=== PATIENT | male | born 1945 | race Caucasian/White ===

== ENCOUNTER → 2021-03-02 09:38 | Outpatient (CLI) | payer MEDICARE, OTHER, SELFPAY ==
--- NOTE | ~2021-03-02 | XR_ITS ---
EXAMINATION: XR hip RT min 2V DATE: 03/02/2021 09:54 INDICATION: Right hip pain. TECHNIQUE: 2 views of right hip were obtained. COMPARISON: None. FINDINGS: Bone alignment is normal. No fracture. There is mild right hip osteoarthritis. IMPRESSION: 1. Mild right hip osteoarthritis. Reviewed, dictated and finalized at location A. [facility] CLERK
== END ==
PROVIDERS: PCP Family Medicine; Visit Provider Family Medicine
DX: M16.11 Unilateral primary osteoarthritis, right hip (principal)
CPT/HCPCS: 73502

== ENCOUNTER 2023-05-30 08:26 | Emergency (ER) | payer MEDICARE, SELFPAY ==
[2023-05-30] VITALS (16 sets, daily range): BP systolic 101–154; BP diastolic 61–85; PULSE 72; RESP 16–18; TEMP 36.4; O2SAT 94–100
--- NOTE | ~2023-05-30 | CT_ITS ---
EXAMINATION: CT abdomen pelvis w con INDICATION: Right lower quadrant abdominal pain TECHNIQUE: Computed tomographic images of the abdomen and pelvis were obtained after the administrati on of 100 cc of Omnipaque 350 intravenous contrast. The dose-length product (DLP) was 255.41 mGy-cm. Automated exposure control and iterative reconstruction technique were employed. COMPARISON: None available FINDINGS: Minimal dependent atelectasis is present in the lung bases. The heart size is normal. Calci fied coronary artery atherosclerosis is noted. There is mild bilateral gynecomastia. Cysts of the raphael er measure up to 12 mm in the right hepatic lobe. The spleen, pancreas, and adrenal glands are normal . Stones are present in the nondistended gallbladder. There is a 3 mm nonobstructing stone of the lef t kidney. There is a 4 mm stone at the right ureterovesicular junction which causes moderate hydroure teronephrosis. There is hypoperfusion of the right kidney compared to left and surrounding perinephri c fat stranding. No pathologically enlarged abdominal or pelvic lymph nodes are identified. No free i ntraperitoneal gas or evidence of bowel obstruction. There is a right inguinal hernia containing fat. There is severe lumbar spondylosis. IMPRESSION: 1. 4 mm stone at the right ureterovesicular junction causing moderate hydroureteronephrosis. Hypoperf usion of the right kidney compared to the left and surrounding perinephric fat stranding could reflec t superimposed pyonephritis. Reviewed, dictated and finalized at location B. ROGRAPHER IMPRESSION: 1. 4 mm stone at the right ureterovesicular junction causing moderate hydrouret eronephrosis. Hypoperfusion of the right kidney compared to the left and surrou nding perinephric fat stranding could reflect superimposed pyonephritis.
--- NOTE | 2023-05-30 09:05 | ED.ABDPAIN ---
HPI - Abdominal Pain General Chief Complaint: Abdominal Pain Stated Complaint: abdomen pain Time Seen by Provider: 05/30/23 08:32 History of Present Illness HPI narrative: Patient is a 78-year-old male with past medical history of pancreatic cancer status post partial cystectomy, prior appendectomy here with right lower quadrant abdominal pain. He states that the abdominal pain will come up from sleep around 3:00 a.m. in the morning. He notes that is located in his right lower quadrant and radiates into his right lower back in the lumbar region. Pain is severe, sharp, no exacerbating or alleviating factors appreciated. He notes associated nausea and multiple episodes of vomiting. He has had 2 loose bowel movements overnight, nonbloody. No blood in his vomit either. He denies any cough, congestion, fever, chills. He has never had a colonoscopy but had negative screening Cologuards in the past. He denies any hematuria or dysuria. No prior history of kidney stone. Last p.o. intake was last night. Related Data Allergies Allergy/AdvReac Type Severity Reaction Status Date / Time bacitracin Allergy Unknown Unknown Verified 05/30/23 08:59 miconazole Allergy Unknown Unknown Verified 05/30/23 08:59 polymyxin B Allergy Unknown Unknown Verified 05/30/23 08:59 Sulfa (Sulfonamide Allergy Unknown Unknown Verified 05/30/23 08:59 Antibiotics) Review of Systems Review of Systems: All systems reviewed & are unremarkable except as noted in HPI and below PMFSH Past Medical History Medical History Anxiety Chronic insomnia Depression Erectile dysfunction following radical prostatectomy History of prostate cancer History of SCC (squamous cell carcinoma) of skin Pure hypercholesterolemia Family History Family History Grandparent Family history of malignant neoplasm Family history of heart disease in male family member before age 55 Mother Family history of kidney disease Father Family history of Alzheimer's disease Social History Social History Smoking status: Never smoker Second hand tobacco smoke exposure: No Alcohol intake: current Substance use: never Substance use type: does not use Living arrangements: with family Occupation/Education: retired Gender identity (if verbalized by the patient): Male Sexual Orientation (if Verbalized by the Patient): Straight or Heterosexual Exam Narrative: GENERAL: Well-appearing, well-nourished, and in no acute distress. HEAD: Normocephalic, atraumatic. EYES: PERRLA and EOMI. ENT: Nares clear. Mucous membranes moist. NECK: Supple. CHEST: Clear to auscultation. No respiratory distress. HEART: Regular rate and rhythm. Normal peripheral pulses. ABDOMEN: Soft, right lower quadrant tenderness, nondistended. Large well-healed surgical scar present in the right lower quadrant consistent with prior open appendectomy. No CVA tenderness bilaterally. EXTREMITIES: Normal range of motion. No edema. SKIN: Warm, dry, no rash. NEURO: No focal deficits. Alert and oriented x3. PSYCH: Normal mood and affect. Course Course Emergency Course: Chart review performed, patient here with right lower quadrant abdominal pain that began 6 hours ago. Associated nausea, vomiting, diarrhea, triage vitals within normal limits. PCP note from February reviewed, history of prostate cancer status post prostatectomy. No prior colonoscopies, had negative color guards and then aged out of routine screening. Patient seen evaluated, nontoxic appearing. He is having right lower quadrant tenderness that radiates into his lower back. Differentials include but are not limited to kidney stone, UTI, diverticulitis, bowel obstruction. Abdominal workup and CT abdomen pelvis ordered. Will order morphine for pain. Patient agreeable.
[2023-05-30] MEDS: ONDANSETRON INJ 4 MG/2 ML VIAL IV PUSH (09:12)
[2023-05-30 09:32] LABS: Basophils Percent Auto 0.2 % (0.2-1.2); Hematocrit 42.3 % (42.0-52.0); Hemoglobin 14.2 g/dL (14.0-18.0); Immature Granulocyte Absolute 0.04 K/mm3 (0.00-0.031); Immature Granulocyte Percent A 0.3 % (0-0.5); Lymphocytes Absolute Auto 0.56 K/mm3 (0.9-3.2); Lymphocytes Percent Auto 4.3 % (18.3-44.2); Mean Corpuscular HGB Conc 33.6 g/dl (32-36); Mean Corpuscular Hemoglobin 32.8 pg (26-34); Mean Corpuscular Volume 97.7 fl (80-100); Mean Platelet Volume 9.4 fl (7.4-10.4); Monocytes Absolute Auto 0.6 K/mm3 (0.1-0.6); Monocytes Percent Auto 4.2 % (2.6-8.5); Platelet Count Result 340 k/mm3 (150-375); Red Blood Count 4.33 M/mm3 (4.6-6.20); Red Cell Distribution Width 12.8 % (11.5-14.5); White Blood Count 13.1 K/mm3 (4.5-10.0)
[2023-05-30 09:43] LABS: Alanine Aminotransferase 22 U/L (6-50); Albumin Level 4.1 g/dL (3.5-5.1); Alkaline Phosphatase 49 U/L (38-126); Anion Gap 8 mmol/L (8-16); Aspartate Amino Transferase 27 U/L (17-59); Bilirubin,Total 0.5 mg/dL (0.2-1.3); Blood Urea Nitrogen 20 mg/dL (9-20); Calcium 9.2 mg/dL (8.4-10.2); Carbon Dioxide 24 mmol/L (22-30); Chloride 106 mmol/L (98-107); Estimated CRCL calculation 46 ml/min; Estimated Glomerular Filt Rate > 60; Glucose 121 mg/dL (65-110); Lipase 131 U/L (23-300); Potassium 3.6 mmol/L (3.4-5.0); Sodium 138 mmol/L (137-145)
[2023-05-30 09:49] LABS: Lactic Acid Reflex 1.3 mmol/L (0.7-2.0)
[2023-05-30 09:51] LABS: CRP 0.6 mg/dL (<1.0)
[2023-05-30 09:54] LABS: Prothrombin Time 14.1 Seconds (11.1-14.7)
[2023-05-30 09:55] LABS: Partial Thromboplastin Time 27.5 SECONDS (22.3-36.8)
[2023-05-30] MEDS: MORPHINE SULFATE (*CRX) 4 MG/ML INJ IV PUSH (10:14)
[2023-05-30 10:26] LABS: Appearance Urine Clear (Clear); Bacteria Urine None Seen /hpf; Bilirubin Urine Negative (Negative); Blood Urine 3+ (Negative); Color Urine Yellow (Yellow); Glucose Urine UA Negative (Negative); Ketones Urine 2+ mg/dL (Negative); Leukocyte Esterase Ur Negative LEU/UL (Negative); Nitrate Urine Negative (Negative); Protein Urine Negative (Negative); RBC Urine 21-50 /hpf (0-2); Squamous Epithelial Cell Urine None seen /hpf (Few); Urobilinogen Urine 0.2 mg/dL (<2.0); WBC Urine 0-5 /hpf; pH Urine 6.5 (5.0-9.0)
[2023-05-30 10:34] LABS: Add Urine Microscopic? YES; Specific Grav Ur 1.052 (1.001-1.035)
[2023-05-30] MEDS: KETOROLAC 15 MG/ML VIAL (*BKC) IV PUSH (12:01)
== END 2023-05-30 14:03 | disposition home or self-care (01) ==
PROVIDERS: Emergency Provider Student in an Organized Health Care Education/Training Program; PCP Family Medicine
DX: N13.2 Hydronephrosis with renal and ureteral calculous obstruction (principal); F41.9 Anxiety disorder, unspecified; F32.A Depression, unspecified; E78.5 Hyperlipidemia, unspecified; Z85.46 Personal history of malignant neoplasm of prostate; Z85.828 Personal history of other malignant neoplasm of skin
CPT/HCPCS: 36415; 74177; 80053; 81001; 83605; 83690; 85025; 85610; 85730; 86140; 87040; 96374; 96375; 99284; J1885; J2270; J2405; Q9967